=== PATIENT | female | born 1965 | race Caucasian/White ===

== ENCOUNTER 2024-10-03 17:12 | Emergency (ER) | payer OTHER ==
[~2024-10-03] VITALS: Ht 170.2 cm; Wt 72.6 kg
[~2024-10-03 17:12] MED LIST: POTASSIUM CHLO20 ME1 PO
[2024-10-03] MEDS: KETOROLAC TROMETHAMINE 60 MG/2 ML VIAL IM ONE (17:37)
[2024-10-03] MEDS: ORPHENADRINE CITRATE 30 MG/ML VIAL IM ONE (17:37)
[2024-10-03] MEDS ORDERED: KETOROLAC TROME10 MG PEG (19:39)
[2024-10-03 19:48] VITALS: PULSE 77; RESP 16; TEMP 98.1; O2SAT 100
== END 2024-10-03 19:51 | disposition home or self-care (01) ==
LOC: ER 17:38
DX: S16.1XXA Strain of muscle, fascia and tendon at neck level, initial encounter (principal); S39.012A Strain of muscle, fascia and tendon of lower back, initial encounter; R20.2 Paresthesia of skin; V43.52XA Car driver injured in collision with other type car in traffic accident, initial encounter; Y92.488 Other paved roadways as the place of occurrence of the external cause; I10 Essential (primary) hypertension; K21.9 Gastro-esophageal reflux disease without esophagitis; Z98.84 Bariatric surgery status
CPT/HCPCS: 70450; 72125; 72131; 99283; J1885; J2360